=== PATIENT | male | born 1965 | race Caucasian/White ===

== ENCOUNTER → 2018-04-14 08:39 | Outpatient (CLI) | payer BC, SELFPAY ==
--- NOTE | 2018-04-14 08:46 | US_ITS ---
US abdomen limited History:Elevated liver enzymes and cholesterol Ordering Physician:NEIL Alves Patient Age: 52 years Comparison:None Findings: Pancreas:Unremarkable. No obvious mass or abnormal fluid collection. No ductal dilatation Liver:There is diffuse increased echogenicity of the liver with poor through transmission of sound consistent with fatty liver. Right Kidney:Unremarkable. Normal size and echogenicity. No hydronephrosis Gallbladder:No gallstones, gallbladder wall thickening, pericholecystic fluid, or biliary dilatation. May be a small amount of gallbladder sludge Impression: 1. Fatty liver. 2. No shadowing gallstones apparent. Possible small amount of gallbladder sludge
== END ==
PROVIDERS: Family Provider Family Medicine; PCP Family Medicine; Visit Provider Physician Assistant
DX: R94.5 Abnormal results of liver function studies (principal)
CPT/HCPCS: 76705

== ENCOUNTER → 2019-11-15 12:00 | Outpatient (CLI) | payer BC, SELFPAY ==
--- NOTE | 2019-11-15 12:04 | XR_ITS ---
PROCEDURE: XR CHEST 2V CLINICAL HISTORY: BRONCHITIS Bronchitis, shortness of breath COMPARISON: No exams were available for comparison FINDINGS: The cardiomediastinal silhouette and pulmonary vascularity are within normal limits. There are minimal atelectatic or fibrotic changes in the lingula. The remaining lungs are clear. No acute bony abnormalities. IMPRESSION: Atelectatic or fibrotic change in the lingula otherwise negative Dictated by: Kai Delgado MD 11/15/2019 13:07 Electronically signed by Kai Delgado MD in [place] 11/15/2019 13:07
== END ==
PROVIDERS: PCP Physician Assistant; Visit Provider Physician Assistant
DX: J40 Bronchitis, not specified as acute or chronic (principal)
CPT/HCPCS: 71046

== ENCOUNTER → 2019-12-05 15:31 | Outpatient (CLI) | payer BC, SELFPAY ==
[2019-12-08 06:27] LABS: PSA, Free 0.11 ng/mL; Prostate Specific Ag 0.5 ng/mL (0.0-4.0)
== END ==
PROVIDERS: Visit Provider Urology
DX: R97.20 Elevated prostate specific antigen [PSA] (principal)
CPT/HCPCS: 36415; 84153; 84154

== ENCOUNTER → 2020-07-17 11:36 | Outpatient (CLI) | payer BC, SELFPAY ==
--- NOTE | 2020-07-17 12:08 | ECG_ITS ---
APPROVED REPORT Exam: Resting ECG HR:48 bpm ECG Measurements Heart Rate 48 AXES NE 154 P 40 QRSd 106 QRS 22 QT 434 T 56 QTc 387 <Conclusion> Marked sinus bradycardia Abnormal ECG Electronically signed by : Chas Diane, 07/17/2020 17:31:35
[2020-07-17 12:20] LABS: Creatine Kinase 159 U/L (55-170)
[2020-07-17 12:29] LABS: CKMB Relative Index 0.8 U/L (0-4.0); Creatine Kinase MB 1.2 ng/ml (0.0-2.03)
[2020-07-17 12:34] LABS: Troponin I < 0.01 ng/ml (0.00-0.034)
[2020-07-17 12:48] LABS: Chloride 105 mmol/L (98-107); Potassium 4.3 mmoL/L (3.5-5.1); Sodium 140 mmol/L (136-145)
[2020-07-17 12:50] LABS: Alanine Aminotransferase 73 U/L (12-78); Aspartate Amino Transferase 50 U/L (17-59); Bilirubin,Total 1.2 mg/dl (0.2-1.3); Blood Urea Nitrogen 14 mg/dl (9-20); Estimated Glomerular Filt Rate 88 ml/min (>60); GFR (African American) 107 ML/MIN (>60)
[2020-07-17 12:51] LABS: Albumin Level 4.2 g/dl (3.5-5.0); Albumin/Globulin Ratio 1.8 (1.1-1.8); Alkaline Phosphatase 72 U/L (38-126); Anion Gap 14.3 mEq/L (5-15); Calcium 9.3 mg/dl (8.4-10.2); Carbon Dioxide 25 mmol/L (22.0-30.0); Globulin 2.4 g/dL (1.3-3.2); Glucose 205 mg/dl (74-100); Total Protein,Serum 6.6 g/dl (6.3-8.2)
[2020-07-17 13:31] LABS: Uric Acid 3.1 mg/dl (3.5-8.5)
[2020-07-17 13:32] LABS: Erythrocyte Sedimentation Rate 5 mm/hr (0-20)
[2020-07-18 06:21] LABS: Vitamin B12 359 pg/mL (232-1245)
[2020-07-18 12:24] LABS: RA Latex Turbid. 10.2 IU/mL (0.0-13.9)
[2020-07-19 02:47] LABS: Antinuclear Antibodies, IFA Negative (.)
== END ==
PROVIDERS: Visit Provider Physician Assistant
DX: R07.89 Other chest pain (principal); R00.0 Tachycardia, unspecified
CPT/HCPCS: 36415; 80053; 82550; 82553; 82607; 84484; 84550; 85651; 86038; 86431; 93005; 93225; 93226

== ENCOUNTER → 2020-08-09 07:03 | Outpatient (CLI) | payer BC, SELFPAY ==
--- NOTE | 2020-08-09 | CA_ITS ---
APPROVED REPORT Exam: Exercise Treadmill Technologist: Berna Hayden, Ht: 5 ft 10 in Wt: 248 lbs BSA: 2.29 m2 HR: 58 bpm BP: 152/84 mmHg Rhythm: SINUS RHYTHM(ABNORMAL EKG) Medical History Medical History: HTN, Hyperlipidemia Medications: Omeprazole,,,,, Losartan,,,,, RoSUVASTATIN,,,,, OmeGA-3,,,,, Allergies: No known drug allergies Cardiac Risk Factors: HTN, Hyperlipidemia Stress Test Details Test: Vijay HR Resting HR: 56 bpm Max Heart Rate (APMHR): 167 bpm Max HR Achieved: 158 bpm Target HR (85% APMHR): 141 bpm % of APMHR: 94 Recovery HR: 139 bpm BP Resting BP: 152.0/84.0 mmHg Max BP: 200.0/92.0 mmHg Recovery BP: 154.0/82.0 mmHg ECG Resting ECG: SINUS RHYTHM(ABNORMAL EKG) Clinical Exercise duration: 09:53 min Highest Stage Achieved: Exercise capacity: 12.8 METs Stress ECG Conclusion VIJAY PROTOCOL COMPLETED. EXERCISED 09:53. MAX HEART RATE 158 BPM WHICH IS 95% OF PM FOR AGE. MAX BP 200/92. TEST STOPPED DUE TO SOA AND LEG FATIGUE. NO CHEST PAIN. SHORTNESS OF BREATH AT PEAK EXERCISE. LEG PAIN. OCCASIONAL PVC. OCCASIONAL PAC. GREATER THAN 1.[address] DEPRESSION. IMAGES TO FOLLOW. Test Summary REST . . . . . . . Standing REST . . . . . . . Standing REST . . . . . . . Sitting REST . . . . . . . Sitting REST 11:41 0.0 0.0 56 . 152/ 84 . . Stage 1 01:00 10.0 1.7 87 . . . . Stage 1 02:00 10.0 1.7 91 . . . . Stage 1 03:00 10.0 1.7 100 . 170/ 86 . . Stage 2 01:00 12.0 2.5 116 . . . . Stage 2 02:00 12.0 2.5 115 . . . . Stage 2 03:00 12.0 2.5 116 . 182/ 90 . . Stage 3 01:00 14.0 3.4 127 . . . . Stage 3 02:00 14.0 3.4 142 . . . . Stage 3 03:00 14.0 3.4 143 . 190/ 92 . . Stage 4 . . . . . . . Cardiolite injected Stage 4 00:53 16.0 4.2 157 . . . Stop exercise at 09:53 RECOVERY 01:00 0.0 0.0 140 . 200/ 92 . . RECOVERY 02:00 0.0 0.0 118 . 200/ 92 . . RECOVERY 03:00 0.0 0.0 100 . 154/ 82 . . RECOVERY 04:00 0.0 0.0 88 . 154/ 82 . . RECOVERY 05:00 0.0 0.0 89 . 181/ 81 . . RECOVERY 05:26 0.0 0.0 91 . 146/ 76 . . Electronically signed by : Rj Mcneal, 08/09/2020 13:29:37
--- NOTE | 2020-08-09 07:05 | CA_ITS ---
APPROVED REPORT EXAM: Comprehensive 2D, Doppler, and color-flow Echocardiogram Animal Handler: Natalie Mason RDCS Ht: 5 ft 10 in Wt: 248lbs BSA: 2.29 BP: 136/78 mmHg Indications: CP,ARM NUMBNESS,ABN EKG 2D Dimensions LVOT 2.36 cm (M/F) 1.5-2.5 M-Mode Dimensions RVDd 3.26 cm (0.9-2.6) LVDd 5.98 cm (3.5-5.7) LVDs 4.33 cm (3.5-5.7) IVSd 0.63 cm (0.6-1.1) PWd 0.85 cm (0.6-1.1) EF (Teich) 52.70% FS 27.60% EDV (Teich) 178.60 mL ESV (Teich) 84.40 mL LV Diastology E/A Ratio 1.74 Mitral Valve MV A Velocity 46.00 (40-130 cm/s) Left Ventricle Left atrium is mildly enlarged, left ventricle is normal size, left ventricle wall thickness is upper limit of normal, there is preserved left ventricular systolic function, visually estimated ejection fraction 55% with no regional wall motion abnormality, grade 1 diastolic dysfunction seen without tissue Doppler evidence of raise left atrial pressure. Right Ventricle Right atrium is normal size, right ventricle is qualitatively mildly enlarged with normal contractility. Aortic Valve Aortic valve is grossly normal, there is no aortic stenosis or aortic insufficiency. Mitral Valve Mitral valve grossly normal, there is mild mitral regurgitation. Tricuspid Valve Tricuspid valve grossly normal, there is mild tricuspid regurgitation, tricuspid regurgitation jet velocity is inadequate for calculation of the right ventricular systolic pressure. Pulmonic Valve Pulmonic valve is poorly visualized. Great Vessels Aortic root is normal size. Pericardium No significant pericardial effusion noted. Conclusion 1. Mildly enlarged left atrium, normal left ventricular size, visually estimated ejection fraction 55% with no regional wall motion abnormality, grade 1 diastolic dysfunction seen without tissue Doppler evidence of raise left atrial pressure. 2. Qualitatively mildly enlarged right ventricle with normal contractility. 3. Mild mitral and tricuspid regurgitation. 4. No significant pericardial effusion noted. Electronically signed by : Rj Mcneal, 08/09/2020 13:33:30
--- NOTE | 2020-08-09 07:49 | NM_ITS ---
APPROVED REPORT Exam: Nuclear Stress Test Indication: HTN, High cholesterol, Family history Patient Location: Outpatient Stress Tech: Genevieve Hayden IN Tech:Sandra Cruz JACOB RT(R)(N) Ht: 5 ft 10 in Wt: 239 lbs HR: 58 bpm BP: 152/84 mmHg BSA: 2.25 m2 BMI: 34.2 History: HTN, High cholesterol, Family history Procedure: Patient exercised on Vijay protocol 9:53 minutes and sec, resting heart rate 58 bpm, resting blood pressure 152/84 mmHg, with exercise maximum heart rate achived was 158 bpm which is Equal to 95 % of the maximum predicted heart rate and blood pressure was 200/92 mmHg. Test was stopped due to Fatigue. Patient denied any complaint of chest pain. Patient has Good exercise capacity, achieved 12.8 METs of workload on treadmill, the blood pressure response to exercise was Hypertensive. Electrocardiogram Resting electrocardiogram showed sinus rhythm nonspecific ST-T changes, with exercise there is additional millimeter ST segment depression noted from the baseline EKG. The EKG portion of the exercise Myoview is nondiagnostic due to baseline abnormal EKG. Cardiac Stress and Resting SPECT Images: Cardiac Stress and Resting SPECT images were obtained using technetium 99m Myoview 32.1 mCi stress and 10.80 mCi at rest. Gated SPECT with analysis of segmental wall motion and calculation of the ejection fraction also done. Cardiac stress and resting SPECT images show uniform myocardial activity without segmental perfusion abnormality, computer derived ejection fraction is over 65% with no regional wall motion abnormality, right ventricle is normal size and contractility. Conclusion: 1. The EKG portion of the exercise Myoview is nondiagnostic due to baseline abnormal EKG, patient has good exercise capacity achieved 12.8 mets of workload on treadmill, the blood pressure response to exercise was hypertensive, there was no exercise-induced chest discomfort. 2. No scintigraphic evidence of reversible ischemia seen, computer derived ejection fraction is over 65% with no regional wall motion abnormality, right ventricle is normal size and contractility. 3. Normal exercise Myoview study. Electronically signed by : Rj Mcneal, 08/12/2020 22:36:31
--- NOTE | 2020-08-09 09:35 | HMH.ITSHM ---
Current Home Medications as stated by this patient Wilfredo Gamez or senior patient account representative. [] losartan omeprazole rosuvastatin
== END ==
PROVIDERS: PCP Physician Assistant; Visit Provider Nurse Practitioner Family
DX: R06.00 Dyspnea, unspecified (principal); R07.9 Chest pain, unspecified; R94.31 Abnormal electrocardiogram [ECG] [EKG]; I47.1 Supraventricular tachycardia; R00.1 Bradycardia, unspecified; R20.0 Anesthesia of skin
CPT/HCPCS: 78452; 93017; 93306; A9502

== ENCOUNTER → 2020-08-12 13:13 | Outpatient (CLI) | payer BC, SELFPAY ==
--- NOTE | 2020-08-12 13:18 | XR_ITS ---
PROCEDURE: XR WRIST LT MIN 3V CLINICAL INDICATION: carpal tunnel syndrome COMPARISON: No exams were available for comparison FINDINGS: No fracture or dislocation. No lytic or blastic change. There is normal mineralization. The joint spaces are well-preserved. No significant degenerative/arthritic changes. No erosive changes evident. Other findings:None. IMPRESSION: No acute findings. Dictated by: Kai Delgado MD 08/12/2020 13:51 Kai Delgado MD in [place] 08/12/2020 13:51
== END ==
PROVIDERS: PCP Family Medicine; Visit Provider Orthopaedic Surgery
DX: M25.532 Pain in left wrist (principal)
CPT/HCPCS: 73110

== ENCOUNTER → 2020-10-30 11:34 | Outpatient (CLI) | payer BC, SELFPAY ==
[2020-10-30 11:43] LABS: MANUAL DIFFERENTIAL MANUAL DIFFERENTIAL (MANUAL DIFF)
[2020-10-30 12:17] LABS: Basophils # 0.1 K/mm3 (0-0.2); Basophils % 0.7 % (0.1-2.0); Eosinophils # 0.4 K/mm3 (0.0-0.4); Hematocrit 49.9 % (42.0-52.0); Hemoglobin 17.3 g/dL (14.1-18.0); Lymphocytes # 2.4 K/mm3 (0.7-4.5); Mean Corpuscular HGB Conc 34.7 g/dL (31.8-35.4); Mean Corpuscular Hemoglobin 31.3 pg (27.0-31.2); Mean Corpuscular Volume 90.3 fl (80-94); Mean Platelet Volume 7.8 fl (7.4-10.4); Monocytes # 0.5 K/mm3 (0.1-1.0); Monocytes % 6.4 % (1.7-9.3); Neutrophils # 4.5 K/mm3 (1.8-7.8); Neutrophils % 56.9 % (37.0-80.0); Platelet Count 257 K/mm3 (142-424); Red Blood Count 5.52 M/mm3 (4.60-6.20); Red Cell Distribution Width 13.4 % (11.5-17.5); White Blood Count 7.9 K/mm3 (4.8-10.8)
[2020-10-30 13:14] LABS: Chloride 103 mmol/L (98-107); Potassium 4.6 mmoL/L (3.5-5.1); Sodium 139 mmol/L (136-145)
[2020-10-30 13:16] LABS: Blood Urea Nitrogen 14 mg/dl (9-20); Estimated Glomerular Filt Rate 88 ml/min (>60); GFR (African American) 107 ML/MIN (>60)
[2020-10-30 13:17] LABS: Alanine Aminotransferase 51 U/L (12-78); Albumin Level 4.9 g/dl (3.5-5.0); Albumin/Globulin Ratio 1.9 (1.1-1.8); Alkaline Phosphatase 99 U/L (38-126); Anion Gap 13.6 mEq/L (5-15); Aspartate Amino Transferase 35 U/L (17-59); Bilirubin,Total 0.6 mg/dl (0.2-1.3); Calcium 10.1 mg/dl (8.4-10.2); Carbon Dioxide 27 mmol/L (22.0-30.0); Globulin 2.6 g/dL (1.3-3.2); Glucose 182 mg/dl (74-100); Total Protein,Serum 7.5 g/dl (6.3-8.2)
[2020-10-30 14:34] LABS: Eosinophils % 1 % (0-3); Lymphocytes % 21 % (10-50); Monocytes % 9 % (2-9); Neutrophils % 67 % (42-76); Platelet Estimate Normal; RBC Morphology Normal; Total Cells Counted 100
== END ==
PROVIDERS: Visit Provider Orthopaedic Surgery
DX: Z01.818 Encounter for other preprocedural examination (principal); G56.02 Carpal tunnel syndrome, left upper limb; R20.2 Paresthesia of skin; M67.40 Ganglion, unspecified site
CPT/HCPCS: 36415; 80053; 85007; 85014; 85018; 85048; 85049

== ENCOUNTER → 2020-11-04 09:41 | Outpatient (CLI) | payer BC, SELFPAY ==
[2020-11-04 11:22] LABS: Coronavirus 19 IgG Antibody Negative (Negative); Coronavirus 19 IgM Antibody Negative (Negative)
== END ==
PROVIDERS: Visit Provider Orthopaedic Surgery
DX: Z01.818 Encounter for other preprocedural examination (principal); M79.602 Pain in left arm; R20.2 Paresthesia of skin
CPT/HCPCS: 36415; 86328

== ENCOUNTER 2020-11-05 08:42 | Day surgery (SDC) | payer BC, SELFPAY ==
[2020-11-01 14:23] VITALS: BMI 34.4
[2020-11-05 09:24] VITALS: BP 130/75; PULSE 57; RESP 18; TEMP 36.2; O2SAT 98
[2020-11-05 09:42] LABS: POC Glucose,Bedside 162 (70-110)
--- NOTE | 2020-11-05 11:56 | P.PN_ITS ---
[facility] Anesthesia Checklist - Structural Data Admitted From: Home Planned Operative Procedure/s: l carpal tunnel release Consent for Planned Operative Procedure(s) Verified: Yes - Additional verifications Anesthesia Reactions: No Hx Blood Transfusions: No Blood Transfusion Reaction: No - Airway Assessment C-Spine Mobility Assessed: Yes TMJ Mobility Assessed: Yes Dentition: Good Dentition - Neurological Assessment Level of Consciousness: Awake, Alert, Appropriate - Anesthesia Plan Anesthesia Risk discussed: Yes Anesthesia Plan: Verified ASA Class: II Anesthesia Type: MAC w/Block [facility] History I have reviewed the patient's past medical history: Yes Medical History: Reports:: Diabetes Mellitus Type 2, Gastroesophageal Reflux Disease(GERD), Hyperlipidemia, Hypertension Denies:: Cancer, Diabetes Mellitus Type 1, Internal Pacemaker, Lung Disease, MRSA, Seizures *Have you ever received a pneumonia vaccine?: No *Have you received a flu vaccine this season?: Yes Other Medical History: Denies: Blood Transfusion Reaction Anesthesia experience/problems:: none Laterality Cases: Right: Other Other Surgeries: Yes: Colonoscopy, Hernia Repair, Other. No: Pacemaker Amputation: No Fractures: No - *Social History Last grade of school completed: High school graduate Smoking Status: Never smoker Alcohol Intake: never Substance Use Type: denies use *Occupational Status:: retired Housing: house Household Members: none *Travel in the last 8 weeks: None Family Hx:: No significant family history
[2020-11-05 12:10] VITALS: BP 115/57; PULSE 58; RESP 16; TEMP 36.2; O2SAT 92
[2020-11-05 12:25] VITALS: BP 103/66; PULSE 55; RESP 16; TEMP 36.2; O2SAT 92
[2020-11-05 12:40] VITALS: BP 113/69; PULSE 51; RESP 18; TEMP 36.2; O2SAT 93
--- NOTE | 2020-11-05 12:47 | HMH.OPNOTE ---
Date of procedure: 11/05/20 Pre-op Diagnosis:: 1) L carpal tunnel syndrome 2) L wrist dorsal mass Post-op Diagnosis:: same Procedure performed:: 1) L wrist mass excision 2) L carpal tunnel release Surgeon:: Melissa Orr MD Electro Mechanical Engineer(s):: ARNALDO Foote PUBLIC [employer]ANSIT TROLLEY DRIVER:: Piotr Valerio Anesthesia: MAC, regional Estimated blood loss (mL): 5 Clinical Note:: 54-year-old gentleman with pain, numbness and tingling in the left arm present for many years. He underwent right carpal tunnel release around 15 years ago, which resolved the symptoms in his right hand at that time. He still had some issues with the left but decided not to have surgery at that time. He did have an EMG before that surgery that reportedly showed bilateral severe carpal tunnel syndrome. Over time he has not had a lot of issues out of the left hand, but in recent months pain, numbness and tingling of increased to the point where they are present nearly constantly. They are exacerbated while he sleeps and have not been alleviated with brace wear. He has right-hand dominant. He denies a history of diabetes. He also complains of a mass over the dorsum of the left wrist, which is causing discomfort when he works. EMG-NCS LUE performed at [facility] 08/20/20 = median nerve compression at the left wrist (carpal tunnel syndrome), electrophysiologically moderate; with chronic neuropathic changes of the L APB muscle. I discussed treatment options with the patient and he would like to proceed with surgery at this time. In addition to carpal tunnel release, he would like to have his wrist mass removed. I discussed the risks of surgery, including but not limited to: bleeding, infection, neurovascular damage, wound dehiscence, persistence of symptoms despite surgery, recurrence of CTS and need for revision surgery in the future. The patient vocalized understanding and provided informed consent for the procedure. Operative findings:: median nerve compression at the wrist; dorsal wrist mass gross appearance c/w ganglion cyst Operative note:: The patient was identified in preoperative holding and the L wrist signed by myself. I reviewed the consent with the patient and all questions were answered. He was then seen by anesthesia and the decision was made to perform the surgery with regional anesthesia and MAC. Supraclavicular nerve block was performed in pre-operative holding by anesthesia. The patient was then taken to the OR where he was placed supine on the operative table with a hand table attached. 1g of Ancef were infused intravenously and light sedation administered. The left arm was prepped and draped in the usual sterile fashion. Timeout was performed, identifying the correct patient, correct procedure, and correct site. The procedure was begun by using anatomic landmarks to draw the desired surgical incisions with marking pen. The carpal tunnel incision was drawn over the volar aspect of the left wrist at the intersection of Ward's cardinal line and the radial border of the ring finger, extending proximally to the wrist flexion crease. The dorsal mass incision was longitudinal, centered directly over the mass and approximately 1cm in length. The arm was exsanguinated wtih an Esmarch and the tourniquet inflated to 250mmHg. The wrist mass was excised first. Incision was made with a 15 blade over the previously delineated dorsal incision. Subcutaneous tissue was bluntly dissected with tenotomy scissors and the mass immediately identified; it was superficial in location. The gross appearance was consistent with a small ganglion cyst. Blunt dissection was carried out around the periphery of the mass, spreading soft tissue and dissecting out the mass. A central stalk was identified and dissected down to the dorsal wrist capsule, where it was truncated and the mass removed in its entirety. The mass was small, ~8-10mm; sent for pathology. The wound was then irrigated and closed with 4-0 nylon in a simple interrup
== END 2020-11-05 12:40 | disposition home or self-care (01) ==
LOC: OR 08:44
PROVIDERS: PCP Family Medicine; Visit Provider Orthopaedic Surgery
PROC: (CPT 64721; principal; 2020-11-05 10:15)
DX: G56.02 Carpal tunnel syndrome, left upper limb (principal); M67.432 Ganglion, left wrist
CPT/HCPCS: 64721; 25111; 82962; 96374

== ENCOUNTER → 2021-12-24 13:46 | Outpatient (CLI) | payer BC, SELFPAY ==
[2021-12-24 15:54] LABS: Prostate Specific Ag Screen 0.7 ng/ml (0.0-4.0)
== END ==
PROVIDERS: Visit Provider Urology
DX: R97.20 Elevated prostate specific antigen [PSA] (principal)
CPT/HCPCS: G0103

== ENCOUNTER → 2022-12-01 10:56 | Outpatient (CLI) | payer BC, SELFPAY ==
--- NOTE | 2022-12-01 11:06 | XR_ITS ---
FINAL REPORT CLINICAL HISTORY: PAIN..no surgery FINDINGS: 3 views of the left knee were obtained. There is no acute fracture or dislocation. The joint spaces are intact. There is no soft tissue abnormality. IMPRESSION: No acute process. Reviewed, Interpreted and Dictated by Parvin Beck MD Transcribed by Ronan Washington Authenticated and [facility]
== END ==
PROVIDERS: PCP Family Medicine; Visit Provider Family Medicine
DX: M25.562 Pain in left knee (principal)
CPT/HCPCS: 73562

== ENCOUNTER 2025-11-07 06:24 | Day surgery (SDC) | payer BC, SELFPAY ==
--- NOTE | 2025-10-30 10:54 | EXP.HP ---
History of Present Illness *Admission Date: 11/07/25 *History of present illness: Mr. Gamez is a 59-year-old gentleman who is here for screening/surveillance colonoscopy secondary to a personal history of adenomatous colon polyps. The patient did have an initial screening colonoscopy in March 2019 at which time I removed 2 polyps (tubular adenomas x 2). He reports no abdominal pain, weight loss, change in his bowel habits or rectal bleeding. He reports no family history of colon cancer. The examination is deemed medically necessary for screening/surveillance colonoscopy. The patient has been seen, interviewed and examined prior to the procedure by both myself and the anesthesia provider. [facility] Disclaimer: The information contained in this section may have been updated after the patient was seen, as this information can be updated by other users. Medical History Strep throat Abnormal EKG Bradycardia SVT (supraventricular tachycardia) Dyspnea Surgical History History of carpal tunnel surgery History of hernia repair H/O elbow surgery Family History Mother Family history of diabetes mellitus type II Lupus Father Cardiac disease Social History (Updated 11/07/25 @ 06:53 by Hilda Serna RN) Smoking Status: Never smoker alcohol intake: never substance use type: denies use current occupational status: retired Travel in the last 8 weeks?: None household members: none housing: house current occupational exposures/hazards: No caffeine: Yes Have you lived/traveled outside US in past 30 days?: No Contact w/someone who lives/traveled outside US past 30 days?: No Exposure to someone with infectious disease in past 14 days?: No Do you have a fever (greater than 100.4 F or 38 C)?: No Have you tested positive for COVID-19?: No Exposed to someone with COVID-19 in past 14 days?: No Do you have a sore throat?: No Do you have a cough?: No Do you have any weakness?: No Are you experiencing any nausea/vomitting?: No Do you have any diarrhea?: No Are you experiencing any unusual bleeding?: No Do you have any muscle aches/pain?: No Do you have any abdominal pain?: No Are you experiencing loss of taste or smell?: No Other Medical History Have you received the Flu Vaccine for this season: Yes Have you received the Pneumonia Vaccine: Yes Review of Systems Review of Systems Review of systems (narrative): Negative *Cardiovascular Comments: Negative *Gastrointestinal Comments: Negative *Genitourinary Comments: Negative *Musculoskeletal Comments: Negative *Neurologic Comments: Negative Meds Home Medications and Allergies Home Medications ?Medication ?Instructions ?Recorded ?Confirmed ?Type losartan 50 mg tablet 50 mg PO DAILY bp 09/11/18 11/07/25 History omega-3 fatty acids 300 mg capsule 300 mg PO DAILY Supplement 04/07/19 11/07/25 History omeprazole 20 mg capsule,delayed 20 mg PO DAILY Cholesterol 04/07/19 11/07/25 History release rosuvastatin 5 mg tablet 5 mg PO DAILY Cholesterol 07/31/20 11/07/25 History amoxicillin 875 mg tablet 875 mg PO BID 10 days #20 tabs 10/01/25 11/07/25 Rx benzonatate 100 mg capsule 100 mg PO TID PRN cough #30 caps 10/01/25 11/07/25 Rx fluticasone propionate 50 2 spray intranasal DAILY #16 grams 10/01/25 11/07/25 Rx mcg/actuation nasal spray,suspension (Flonase Allergy Relief) guaifenesin 1,200 mg tablet, 1,200 mg PO BID #20 tabs 10/01/25 11/07/25 Rx extended release 12 hr (Mucinex) meloxicam 15 mg tablet 15 mg PO DAILY 10/01/25 11/07/25 History semaglutide 1 mg/dose (4 mg/3 mL) 1 mg SQ WEEKLY 10/01/25 11/07/25 History subcutaneous pen injector (Ozempic) sod picosulf 10 mg-magnes 3.5 175 ml PO DAILY Bowel Prep 2 doses 10/18/25 11/07/25 Rx gram-citric 12 gram/175 mL oral #350 mL solution (Clenpiq) gabapentin 100 mg tablet 500 mg PO NEEDED PRN Pain 11/06/25 11/07/25 History New Prescriptions to Start Prescriptions: Allergies Allergy/AdvReac Type Severity Reaction Status Date / Time No Known Allergies Allergy Verified 11/07/25 06:50 Exam *Routine HEENT Exam Head: Present normocephalic Eye: Present EOMI and PERRL ENT: Present mucous membranes moist *Routine Neck Exam Neck: Present supple *Routine Respiratory Exam Respiratory: Present CTA bilaterally *Routine Cardiovascular Exam Cardiovascular: Present RRR *Routine Abdominal Exam Abdominal: Present soft and normoactive bowel sounds; Absent tenderness *Routine Rectal Exam Rectal:: deferred *Routine Genitalia Exam Genitalia:: deferred *Routine Extremities Exam Extremities: Absent cyanosis, clubbing or edema *Routine Skin Exam Skin: Present warm; Absent rash *Routine Neurological Exam Neurological: Present alert and oriented X3 Assessment and Plan *Assessment and plan (1) Personal history of adenomatous and serrated colon polyps: Status: Acute Category: Medical Code(s): Z86.0101 - Personal history of adenomatous and serrated colon polyps (2) Screening for colon cancer: Status: Acute Category: Medical Code(s): Z12.11 - Encounter for screening for malignant neoplasm of colon Plan A/P: 1. Personal history of adenomatous colon polyps is the preprocedural diagnosis. The patient will be anesthetized/sedated using MAC sedation. The patient has been seen and examined. Cardiac and lung assessment prior to the examination is stable. Proceed with planned screening colonoscopy.
[2025-11-06 12:39] VITALS: BMI 32.7
--- NOTE | 2025-11-07 06:14 | P.PCN_ITS ---
[facility] Procedure Note Date: 11/07/25 Time: 08:19 Procedure Note:: Colonoscopy Procedure Report: Colonoscopy with cold snare polypectomy Endoscopist: Erik Zhong II, MD Referring physician: Aman Patel MD Date of Procedure: November 07, 2025 Equipment: Olympus [id number] adult colonoscope Sedation: MAC sedation Indication: Mr. Gamez is a 59-year-old gentleman who is here for screening/surveillance colonoscopy secondary to a personal history of adenomatous colon polyps. The patient did have an initial screening colonoscopy in March 2019 at which time I removed 2 polyps (tubular adenomas x 2). He did have a prostate nodule identified and is followed routinely with urology/Mina Pollack MD. He reports no abdominal pain, weight loss, change in his bowel habits or rectal bleeding. He reports no family history of colon cancer. The examination is deemed medically necessary for screening/surveillance colonoscopy. Procedure: Prior to the procedure, a history and physical exam was performed, and patient's medications and allergies were reviewed. The risks, benefits and alternatives of the sedation and procedure were discussed with the patient. All questions were answered and informed consent was obtained. The patient was brought to the procedure room. Patient identification and proposed procedure were verified by the physician and the nurse. The patient was placed in a left lateral decubitus position and the scope was passed under direct vision. Throughout the procedure, the patient's blood pressure, pulse, and oxygen saturations were monitored continuously. The colonoscopy was accomplished without difficulty. The patient tolerated the procedure well. Findings: On digital rectal examination there was normal rectal tone. There were small external hemorrhoidal tags. The prostate was 2+, mildly firm and mildly asymmetric without nodules. The colonoscope was introduced through the anal canal to the rectum and advanced to the cecum. The ileocecal valve and appendiceal orifice were identified. The scope was advanced a short distance into the ileum which appeared grossly normal. The scope was then withdrawn into the colon. The cecum, ascending, transverse, descending and sigmoid colon were grossly normal with no mucosal abnormalities. Within the rectum there was a 5 mm sessile polyp that was removed via cold snare polypectomy. Upon retroflexion within the rectum there were grade 1-2 internal hemorrhoids. The preparation was excellent throughout with [place] Preparation Score of 9. The cecal time was 12 minutes. Impression: 1. Rectal polyp (5 mm) 2. Grade 1-2 internal hemorrhoids with external hemorrhoidal tags Plan: I will follow-up the polyp histology and recommend repeat screening/surveillance colonoscopy again in 5 years. I would encourage psyllium bulking fiber supplementation on a long-term daily maintenance basis.
[2025-11-07 06:52] VITALS: BP 130/86; PULSE 64; RESP 18; TEMP 36.6; O2SAT 96; BMI 32.7
[2025-11-07] MEDS: LACTATED RINGERS 1000ML 1,000 ML 50 ML IV (07:04)
--- NOTE | 2025-11-07 07:31 | EXP.ANES.CKL ---
[facility] Disclaimer: The information contained in this section may have been updated after the patient was seen, as this information can be updated by other users. Medical History Strep throat Abnormal EKG Bradycardia SVT (supraventricular tachycardia) Dyspnea Surgical History History of carpal tunnel surgery History of hernia repair H/O elbow surgery Family History Mother Family history of diabetes mellitus type II Lupus Father Cardiac disease Social History (Updated 11/07/25 @ 06:53 by Hilda Serna RN) Smoking Status: Never smoker alcohol intake: never substance use type: denies use current occupational status: retired Travel in the last 8 weeks?: None household members: none housing: house current occupational exposures/hazards: No caffeine: Yes Have you lived/traveled outside [place] in past 30 days?: No Contact w/someone who lives/traveled outside [place] past 30 days?: No Exposure to someone with infectious disease in past 14 days?: No Do you have a fever (greater than 100.4 F or 38 C)?: No Have you tested positive for COVID-19?: No Exposed to someone with COVID-19 in past 14 days?: No Do you have a sore throat?: No Do you have a cough?: No Do you have any weakness?: No Are you experiencing any nausea/vomitting?: No Do you have any diarrhea?: No Are you experiencing any unusual bleeding?: No Do you have any muscle aches/pain?: No Do you have any abdominal pain?: No Are you experiencing loss of taste or smell?: No [facility] Anesthesia Checklist Patient Identification Patient Identification: Arm Band Structural Data Admitted From: Home Planned Operative Procedure/s: Colonoscopy Consent for Planned Operative Procedure(s) Verified: Yes Verified Documents: Surgical Consent and History and Physical NPO Status Verified Time NPO: 04:00 (finished prep) Additional verifications Anesthesia Reactions: No Hx Blood Transfusions: No Blood Transfusion Reaction: No Airway Assessment Mallampati Score:: Class II C-Spine Mobility Assessed: Yes TMJ Mobility Assessed: Yes Dentition: Good Dentition Neurological Assessment Level of Consciousness: Awake, Alert and Appropriate Anesthesia Plan Anesthesia Risk discussed: Yes Anesthesia Plan: Verified ASA Class: II Anesthesia Type: MAC
[2025-11-07 08:21] VITALS: BP 107/63; PULSE 62; RESP 18; TEMP 36.1; O2SAT 92
[2025-11-07 08:31] VITALS: BP 124/75; PULSE 61; O2SAT 94
[2025-11-07 08:41] VITALS: BP 136/78; PULSE 57; O2SAT 94
[2025-11-07 08:51] VITALS: BP 109/59; PULSE 59; O2SAT 96
[2025-11-07 19:42] LABS: POC Glucose,Bedside 174 gm/dL (70-110)
== END 2025-11-07 08:51 | disposition home or self-care (01) ==
PROVIDERS: PCP Family Medicine; Visit Provider Internal Medicine Gastroenterology
PROC: 0DJD8ZZ Inspection of Lower Intestinal Tract, Via Natural or Artificial Opening Endoscopic (ICD-10-PCS; CPT 45378; principal; 2025-11-07 08:00)
DX: Z12.11 Encounter for screening for malignant neoplasm of colon (principal); D12.8 Benign neoplasm of rectum; K64.0 First degree hemorrhoids; K64.1 Second degree hemorrhoids; I47.10 Supraventricular tachycardia, unspecified; Z79.899 Other long term (current) drug therapy; Z79.51 Long term (current) use of inhaled steroids; Z79.1 Long term (current) use of non-steroidal anti-inflammatories (NSAID); Z86.0101 Personal history of adenomatous and serrated colon polyps
CPT/HCPCS: 45385; 82962; J2003; J2704; J7120